=== PATIENT | female | born 1990 | race African-American/Black ===

== ENCOUNTER 2021-02-14 13:00 | Emergency (ER) | payer OTHER, MEDICAID ==
[~2021-02-14] VITALS: Ht 170.2 cm; Wt 108.9 kg
[2021-02-14] MEDS ORDERED: SYMBICORT160 MCG/4. INH (13:10)
[2021-02-14] MEDS ORDERED: LIPITOR 20 MG T20 M1 PO (13:10)
[2021-02-14] MEDS ORDERED: ALBUTEROL2.5 MG/0.5 INH (13:10)
[2021-02-14] MEDS ORDERED: FAMOTIDINE 20 M20 MG PO (13:10)
[2021-02-14] MEDS ORDERED: VALSARTAN40 MG PO (13:10)
[2021-02-14] MEDS ORDERED: OLANZAPINE ODT5 MG PO (13:11)
[2021-02-14] MEDS ORDERED: DIOVAN320 MG PO (13:11)
[2021-02-14] MEDS ORDERED: NEURONTIN 300M300 M2 PO (13:11)
[2021-02-14] MEDS ORDERED: HYDROCHLOROTH12.5 M1 PO (13:11)
[2021-02-14] MEDS ORDERED: FLUOXETINE HCL40 MG PO (13:11)
[2021-02-14] MEDS ORDERED: APAP W/CODEINE1 TA2 PO (14:11)
[2021-02-14] MEDS ORDERED: MEDROLDOSEPACK PO (14:11)
[2021-02-14 14:21] VITALS: BP 153/99
== END 2021-02-14 14:22 | disposition home or self-care (01) ==
LOC: M.ERS 13:00
DX: J06.9 Acute upper respiratory infection, unspecified (principal); Z20.822 Contact with and (suspected) exposure to COVID-19; I10 Essential (primary) hypertension; Z90.49 Acquired absence of other specified parts of digestive tract; Z91.040 Latex allergy status